=== PATIENT | male | born 2000 | race Caucasian/White ===

== ENCOUNTER 2021-02-24 11:18 | Emergency (ER) | payer OTHER ==
[~2021-02-24] VITALS: Ht 180.3 cm; Wt 80.0 kg
[2021-02-24 12:08] LABS: BASO # 0.1 10^3/uL (0.0-0.2); BASO % 0.5 % (0.0-1.0); EOS # 0.1 10^3/uL (0.0-0.5); HEMATOCRIT 43.4 % (42.0-52.0); HEMOGLOBIN 15.7 g/dl (13.5-17.5); LYMPH # 2.3 10^3/uL (1.5-5.0); MEAN CORPUSCULAR HEMOGLOBIN 30.5 pg (27.0-33.0); MEAN CORPUSCULAR HGB CONC 36.2 g/dl (32.0-36.5); MEAN CORPUSCULAR VOLUME 84.4 fl (80.0-96.0); MONO # 0.9 10^3/uL (0.0-0.8); MONO % 9.2 % (2.0-8.0); NEUTROPHILS # 6.9 10^3/uL (1.5-8.5); PLATELET COUNT, AUTOMATED 340 10^3/uL (150-450); RED BLOOD COUNT 5.14 10^6/uL (4.30-6.10); WHITE BLOOD COUNT 10.3 10^3/uL (4.0-10.0)
[2021-02-24 12:45] LABS: ALBUMIN 4.3 GM/DL (3.2-5.2); ALT/SGPT 47 U/L (12-78); BILIRUBIN,TOTAL 0.6 MG/DL (0.2-1.0); BLOOD UREA NITROGEN 16 MG/DL (7-18); CALCIUM LEVEL 9.7 MG/DL (8.5-10.1); CARBON DIOXIDE LEVEL 27 MEQ/L (21-32); CHLORIDE LEVEL 106 MEQ/L (98-107); CREATININE FOR GFR 1.03 MG/DL (0.70-1.30); GLUCOSE, FASTING 90 MG/DL (70-100); MAGNESIUM LEVEL 2.4 MG/DL (1.8-2.4); POTASSIUM SERUM 4.1 MEQ/L (3.5-5.1); SODIUM LEVEL 139 MEQ/L (136-145); TOTAL PROTEIN 7.9 GM/DL (6.4-8.2)
[2021-02-24] MEDS ORDERED: ISOVUE-370 76% 100ML VIAL As Ordered ONE (13:02)
[2021-02-24 15:00] VITALS: BP 111/56
== END 2021-02-24 15:32 | disposition home or self-care (01) ==
LOC: M ED 11:18
DX: R00.2 Palpitations (principal); Z86.16 Personal history of COVID-19
CPT/HCPCS: 36415; 71045; 71275; 80053; 83735; 84443; 85025; 93005; 99284; Q9967

== ENCOUNTER 2022-10-18 06:27 | Emergency (ER) | payer OTHER ==
[~2022-10-18] VITALS: Ht 180.3 cm; Wt 90.1 kg
[2022-10-18 06:27] VITALS: BP 111/64; O2SAT 97
[2022-10-18] MEDS ORDERED: IBUP-1022 PO (06:36)
[2022-10-18] MEDS ORDERED: ACETAMINOPHEN 325 MG TAB PO ONE (07:05)
[2022-10-18] MEDS ORDERED: ONDANSETRON 4MG ORAL DISINTEGRATING TAB PO ONE (07:25)
[2022-10-18 07:39] LABS: RSV AMPLIFICATION NEGATIVE (NEGATIVE)
[2022-10-18 08:07] VITALS: TEMP 101.6
[2022-10-18] MEDS ORDERED: ONDA4TAB6 PO (08:29)
[2022-10-18] MEDS ORDERED: CEPH500C PO (08:29)
== END 2022-10-18 08:44 | disposition home or self-care (01) ==
LOC: M ED 06:27
DX: J02.9 Acute pharyngitis, unspecified (principal)

== ENCOUNTER 2022-11-09 06:56 | Emergency (ER) | payer OTHER ==
[~2022-11-09] VITALS: Ht 180.3 cm; Wt 86.7 kg
[~2022-11-09 06:56] MED LIST: CEPH500C PO; IBUP-1022 PO; ONDA4TAB6 PO
[2022-11-09 08:03] LABS: HEMATOCRIT 39.5 % (42.0-52.0); HEMOGLOBIN 14.2 g/dl (13.5-17.5); MEAN CORPUSCULAR HEMOGLOBIN 30.5 pg (27.0-33.0); MEAN CORPUSCULAR HGB CONC 35.9 g/dl (32.0-36.5); MEAN CORPUSCULAR VOLUME 84.8 fl (80.0-96.0); PLATELET COUNT, AUTOMATED 281 10^3/uL (150-450); RED BLOOD COUNT 4.66 10^6/uL (4.30-6.10); WHITE BLOOD COUNT 3.9 10^3/uL (4.0-10.0)
[2022-11-09 08:32] LABS: AMPHETAMINES LEVEL URINE NEGATIVE (NEGATIVE); BARBITURATES URINE NEGATIVE (NEGATIVE); BENZODIAZEPINES URINE NEGATIVE (NEGATIVE); COCAINE METABOLITE URINE NEGATIVE (NEGATIVE)
[2022-11-09 08:33] LABS: CANNABINOIDS URINE NEGATIVE (NEGATIVE); METHADONE URINE NEGATIVE (NEGATIVE); OPIATES URINE NEGATIVE (NEGATIVE); PHENCYCLIDINE URINE NEGATIVE (NEGATIVE)
[2022-11-09 08:34] LABS: ETHYL ALCOHOL (ETHANOL) 0.005 % (0.000-0.010)
[2022-11-09 08:35] LABS: ACETAMINOPHEN LEVEL < 2.0 UG/ML (10.0-20.0)
[2022-11-09 08:36] LABS: ALBUMIN 4.3 G/DL (3.2-5.2); ALKALINE PHOSPHATASE 81 U/L (46-116); ALT/SGPT 34 U/L (7.0-40); AST/SGOT 24 U/L (<34); BILIRUBIN,DIRECT 0.2 MG/DL (<0.4); BILIRUBIN,TOTAL 0.5 MG/DL (0.3-1.2); BLOOD UREA NITROGEN 11 MG/DL (9-23); CARBON DIOXIDE LEVEL 28 MMOL/L (20-31); CHLORIDE LEVEL 107 MMOL/L (98-107); GLOMERULAR FILTRATION RATE > 60.0 (>60); GLUCOSE, FASTING 93 MG/DL (60-100); SALICYLATE LEVEL < 3.0 MG/DL (<30); SODIUM LEVEL 140 MMOL/L (136-145); TOTAL PROTEIN 7.1 G/DL (5.7-8.2)
[2022-11-09 08:38] LABS: THYROID STIMULATING HORMONE 3.886 uIU/ML (0.55-4.78)
[2022-11-09] MEDS ORDERED: MED REC IN PROGRESS XX SCH (08:40)
[2022-11-09] MEDS ORDERED: HOME MED LIST COMPLETE! XX SCH (10:50)
[2022-11-10 08:38] VITALS: BP 124/69; TEMP 97.4; O2SAT 98
== END 2022-11-10 13:18 | disposition home or self-care (01) ==
LOC: M ED 06:56
DX: F32.A Depression, unspecified (principal); I49.9 Cardiac arrhythmia, unspecified